=== PATIENT | male | born 1945 | race Two or more races ===

== ENCOUNTER 2021-12-31 06:12 | Inpatient (IN) | payer OTHER | END 2022-01-02 16:26 | DRG 470 | LOC: O/R 06:12 → SURH 10:31 | PROVIDERS: ADMIT Orthopaedic Surgery Sports Medicine | PROC: 0SRC0JZ Replacement of Right Knee Joint with Synthetic Substitute, Open Approach (ICD-10-PCS; principal; 2021-12-31) | DX: M17.11 Unilateral primary osteoarthritis, right knee (principal); Z96.651 Presence of right artificial knee joint; I10 Essential (primary) hypertension; E11.9 Type 2 diabetes mellitus without complications; E03.9 Hypothyroidism, unspecified; Z79.4 Long term (current) use of insulin ==